=== PATIENT | male | born 1975 | race Hispanic/Latino ===

== ENCOUNTER → 2022-01-15 08:35 | Outpatient (CLI) | payer OTHER, SELFPAY ==
--- NOTE | 2022-01-15 08:39 | DI.MRI.S_ITS ---
PROCEDURE: MR ELBOW LT W CON INDICATIONS: INJURY TO LEFT ELBOW TECHNIQUE: Noncontrast coronal proton density fast spin echo and T2 fast spin echo with fat saturation, axial and sagittal T1 spin echo and T2 fast spin echo with fat saturation through the elbow. COMPARISON: None. FINDINGS: Image quality: Excellent. Lateral structures: The lateral ulnar collateral ligament and radial collateral ligament both appear intact. The overlying common extensor tendon appears thickened with intrasubstance T2 hyperintense signal at its lateral epicondylar insertion. Medial structures: The ulnar collateral ligament appears intact. The overlying common flexor tendon appears normal. The ulnar nerve appears normal in size and signal within the cubital tunnel. Anterior structures: The biceps and brachialis tendons both appear intact as they insert onto the proximal radius and ulna, respectively. No bicipitoradial bursal fluid. The median and radial neurovascular bundles appear normal; no focal muscle atrophy to suggest nerve impingement. Posterior structures: Thickened distal triceps tendon at its insertion on proximal olecranon is noted with intrasubstance T2 hyperintense signal. The Fluid distending olecranon bursa is noted. Soft tissue swelling over dorsal aspect of elbow is also seen. Bone and cartilage: Mild edema involving proximal olecranon near triceps tendon insertion is seen without discrete fracture line. No other area of abnormal marrow signal. No osteochondral injuries. IMPRESSION: 1. Bony contusion involving proximal olecranon. Small amount of fluid distending overlying olecranon bursa concerning for low-grade bursitis. 2. Suggestion of distal triceps tendinosis/low-grade partial-thickness tear at its olecranon insertion. 3. Mild tendinosis involving common extensor tendon origin at lateral epicondyle. 4. Medial and lateral elbow ligaments are intact. Dictated by: Tavo Bethea M.D. on 01/15/2022 at 11:34 Approved by: Tavo Bethea M.D. on 01/15/2022 at 11:43
== END ==
PROVIDERS: Referring Provider Student in an Organized Health Care Education/Training Program; Visit Provider Student in an Organized Health Care Education/Training Program
DX: S50.02XA Contusion of left elbow, initial encounter (principal); X58.XXXA Exposure to other specified factors, initial encounter
CPT/HCPCS: 73221